=== PATIENT | female | born 1945 | race Caucasian/White ===

== ENCOUNTER → 2017-06-19 09:59 | Outpatient (CLI) | payer MEDICARE, SELFPAY ==
[2017-06-19 10:24] LABS: Alanine Aminotransferase 26 U/L (12-78); Albumin Level 3.8 gm/dL (3.4-5.0); Alkaline Phosphatase 59 U/L (46-116); Anion Gap 8.7 mEq/L (5-15); Aspartate Amino Transferase 16 U/L (15-37); Bilirubin,Total 0.6 mg/dL (0.2-1.0); Blood Urea Nitrogen 14 mg/dL (7-18); Calcium 9.2 mg/dL (8.5-10.1); Carbon Dioxide 32 mmol/L (21.0-32.0); Chloride 103 mmol/L (98-107); Chol/HDL Ratio 3.3 (1-3.5); Cholesterol 146 mg/dL (140-200); Creatinine,Serum 0.81 mg/dL (0.55-1.02); Estimated Glomerular Filt Rate 70 ml/min (>60); GFR (African American) 84 ML/MIN (>60); Globulin 3.8 gm/dl (1.3-3.2); Glucose 123 mg/dL (74-106); HDL Cholesterol 44 mg/dL (29-89); LDL Cholesterol 68 mg/dL (0-130); Potassium 4.7 mmoL/L (3.5-5.1); Sodium 139 mmol/L (136-145); Total Protein,Serum 7.6 gm/dL (6.4-8.2); Triglycerides 168 mg/dL (30-200); VLDL Cholesterol 34 mg/dL (0-40)
== END ==
PROVIDERS: Visit Provider Internal Medicine
DX: I10 Essential (primary) hypertension (principal); M15.0 Primary generalized (osteo)arthritis; E78.5 Hyperlipidemia, unspecified
CPT/HCPCS: 36415; 80053; 80061

== ENCOUNTER → 2017-12-22 09:27 | Outpatient (CLI) | payer MEDICARE, SELFPAY ==
[2017-12-22 10:21] LABS: Basophils # 0.1 K/mm3 (0-0.2); Eosinophils # 0.2 K/mm3 (0.0-0.4); Hematocrit 40.3 % (37.0-47.0); Lymphocytes # 1.9 K/mm3 (0.7-4.5); Mean Corpuscular HGB Conc 32.2 g/dL (31.8-35.4); Mean Corpuscular Hemoglobin 29.4 pg (27.0-31.2); Mean Corpuscular Volume 91.2 fl (81-99); Monocytes # 0.5 K/mm3 (0.1-1.0); Monocytes % 8.1 % (1.7-9.3); Neutrophils # 3.5 K/mm3 (1.8-7.8); Neutrophils % 56.9 % (37.0-80.0); Platelet Count 243 K/mm3 (142-424); Red Blood Count 4.42 M/mm3 (4.20-5.40); White Blood Count 6.2 K/mm3 (4.8-10.8)
[2017-12-22 10:41] LABS: Alanine Aminotransferase 23 U/L (12-78); Albumin Level 3.6 gm/dL (3.4-5.0); Albumin/Globulin Ratio 1.1 (1.1-1.8); Alkaline Phosphatase 62 U/L (46-116); Anion Gap 8.5 mEq/L (5-15); Aspartate Amino Transferase 13 U/L (15-37); Bilirubin,Total 0.6 mg/dL (0.2-1.0); Blood Urea Nitrogen 17 mg/dL (7-18); Calcium 9.1 mg/dL (8.5-10.1); Carbon Dioxide 32 mmol/L (21.0-32.0); Chloride 104 mmol/L (98-107); Chol/HDL Ratio 2.8 (1-3.5); Cholesterol 132 mg/dL (140-200); Creatinine,Serum 0.94 mg/dL (0.55-1.02); Estimated Glomerular Filt Rate 59 ml/min (>60); GFR (African American) 71 ML/MIN (>60); Globulin 3.3 gm/dl (1.3-3.2); Glucose 120 mg/dL (74-106); HDL Cholesterol 47 mg/dL (29-89); LDL Cholesterol 63 mg/dL (0-130); Potassium 4.5 mmoL/L (3.5-5.1); Sodium 140 mmol/L (136-145); Total Protein,Serum 6.9 gm/dL (6.4-8.2); Triglycerides 111 mg/dL (30-200); VLDL Cholesterol 22 mg/dL (0-40)
== END ==
PROVIDERS: PCP Internal Medicine; Visit Provider Internal Medicine
DX: E78.5 Hyperlipidemia, unspecified (principal); I10 Essential (primary) hypertension; I25.10 Atherosclerotic heart disease of native coronary artery without angina pectoris; K21.9 Gastro-esophageal reflux disease without esophagitis; M15.0 Primary generalized (osteo)arthritis
CPT/HCPCS: 36415; 80053; 80061; 85025

== ENCOUNTER → 2018-07-12 10:00 | Outpatient (CLI) | payer MEDICARE, SELFPAY ==
[2018-07-12 10:32] LABS: Basophils # 0.1 K/mm3 (0-0.2); Basophils % 0.7 % (0.1-2.0); Eosinophils # 0.2 K/mm3 (0.0-0.4); Eosinophils % 2.3 % (0.1-12.0); Hematocrit 43.2 % (37.0-47.0); Lymphocytes # 2.2 K/mm3 (0.7-4.5); Lymphocytes % 28.7 % (10-50); Mean Corpuscular HGB Conc 32.5 g/dL (31.8-35.4); Mean Corpuscular Hemoglobin 29.7 pg (27.0-31.2); Mean Corpuscular Volume 91.4 fl (81-99); Monocytes # 0.4 K/mm3 (0.1-1.0); Monocytes % 5.2 % (1.7-9.3); Neutrophils # 4.8 K/mm3 (1.8-7.8); Neutrophils % 63.1 % (37.0-80.0); Platelet Count 324 K/mm3 (142-424); Red Blood Count 4.72 M/mm3 (4.20-5.40); Red Cell Distribution Width 13.4 % (11.5-17.5); White Blood Count 7.6 K/mm3 (4.8-10.8)
[2018-07-12 11:30] LABS: Alanine Aminotransferase 24 U/L (12-78); Albumin Level 3.9 gm/dL (3.4-5.0); Albumin/Globulin Ratio 1.1 (1.1-1.8); Alkaline Phosphatase 61 U/L (46-116); Anion Gap 13.7 mEq/L (5-15); Aspartate Amino Transferase 17 U/L (15-37); Bilirubin,Total 0.8 mg/dL (0.2-1.0); Blood Urea Nitrogen 21 mg/dL (7-18); Calcium 9.8 mg/dL (8.5-10.1); Carbon Dioxide 30 mmol/L (21.0-32.0); Chloride 103 mmol/L (98-107); Cholesterol 145 mg/dL (140-200); Creatinine,Serum 0.89 mg/dL (0.55-1.02); Estimated Glomerular Filt Rate 62 ml/min (>60); GFR (African American) 75 ML/MIN (>60); Globulin 3.5 gm/dl (1.3-3.2); Glucose 118 mg/dL (74-106); HDL Cholesterol 48 mg/dL (29-89); LDL Cholesterol 71 mg/dL (0-130); Potassium 4.7 mmoL/L (3.5-5.1); Sodium 142 mmol/L (136-145); Total Protein,Serum 7.4 gm/dL (6.4-8.2); Triglycerides 132 mg/dL (30-200); VLDL Cholesterol 26 mg/dL (0-40)
== END ==
PROVIDERS: Visit Provider Internal Medicine
DX: I10 Essential (primary) hypertension (principal); I25.10 Atherosclerotic heart disease of native coronary artery without angina pectoris; E78.5 Hyperlipidemia, unspecified; K21.9 Gastro-esophageal reflux disease without esophagitis
CPT/HCPCS: 36415; 80053; 80061; 85025

== ENCOUNTER → 2019-01-25 11:19 | Outpatient (CLI) | payer MEDICARE, SELFPAY ==
[2019-01-25 11:51] LABS: Alanine Aminotransferase 18 U/L (12-78); Albumin Level 3.4 gm/dL (3.4-5.0); Albumin/Globulin Ratio 1.1 (1.1-1.8); Alkaline Phosphatase 51 U/L (46-116); Anion Gap 10.7 mEq/L (5-15); Aspartate Amino Transferase 11 U/L (15-37); Bilirubin,Total 0.7 mg/dL (0.2-1.0); Blood Urea Nitrogen 20 mg/dL (7-18); Calcium 8.8 mg/dL (8.5-10.1); Carbon Dioxide 31 mmol/L (21.0-32.0); Chloride 103 mmol/L (98-107); Chol/HDL Ratio 2.7 (1-3.5); Cholesterol 133 mg/dL (140-200); Creatinine,Serum 0.87 mg/dL (0.55-1.02); Estimated Glomerular Filt Rate 64 ml/min (>60); GFR (African American) 77 ML/MIN (>60); Globulin 3.1 gm/dl (1.3-3.2); Glucose 124 mg/dL (74-106); HDL Cholesterol 50 mg/dL (29-89); LDL Cholesterol 62 mg/dL (0-130); Potassium 4.7 mmoL/L (3.5-5.1); Sodium 140 mmol/L (136-145); Total Protein,Serum 6.5 gm/dL (6.4-8.2); Triglycerides 104 mg/dL (30-200); VLDL Cholesterol 21 mg/dL (0-40)
== END ==
PROVIDERS: Visit Provider Internal Medicine
DX: K21.9 Gastro-esophageal reflux disease without esophagitis (principal); I10 Essential (primary) hypertension; I25.10 Atherosclerotic heart disease of native coronary artery without angina pectoris; I25.2 Old myocardial infarction
CPT/HCPCS: 80053; 80061

== ENCOUNTER → 2019-08-30 11:01 | Outpatient (CLI) | payer MEDICAID, MEDICARE, SELFPAY ==
[2019-08-30 11:24] LABS: Basophils # 0.1 K/mm3 (0-0.2); Basophils % 0.6 % (0.1-2.0); Eosinophils # 0.2 K/mm3 (0.0-0.4); Eosinophils % 2.7 % (0.1-12.0); Hematocrit 41.3 % (37.0-47.0); Hemoglobin 13.3 g/dL (12.2-16.2); Lymphocytes # 2.2 K/mm3 (0.7-4.5); Mean Corpuscular HGB Conc 32.1 g/dL (31.8-35.4); Mean Corpuscular Volume 90.4 fl (81-99); Mean Platelet Volume 8.1 fl (7.4-10.4); Monocytes # 0.5 K/mm3 (0.1-1.0); Monocytes % 6.4 % (1.7-9.3); Neutrophils # 5.3 K/mm3 (1.8-7.8); Neutrophils % 64.2 % (37.0-80.0); Platelet Count 330 K/mm3 (142-424); Red Blood Count 4.57 M/mm3 (4.20-5.40); Red Cell Distribution Width 13.7 % (11.5-17.5); White Blood Count 8.2 K/mm3 (4.8-10.8)
[2019-08-30 12:12] LABS: Alanine Aminotransferase 17 U/L (12-78); Albumin Level 4.2 g/dl (3.5-5.0); Albumin/Globulin Ratio 1.5 (1.1-1.8); Alkaline Phosphatase 61 U/L (38-126); Anion Gap 6.7 mEq/L (5-15); Aspartate Amino Transferase 23 U/L (14-36); Bilirubin,Total 0.7 mg/dl (0.2-1.3); Blood Urea Nitrogen 22 mg/dl (7-17); Carbon Dioxide 32 mmol/L (22.0-30.0); Chloride 102 mmol/L (98-107); Chol/HDL Ratio 2.6 (1-3.5); Cholesterol 153 mg/dl (140-200); Estimated Glomerular Filt Rate 70 ml/min (>60); GFR (African American) 85 ML/MIN (>60); Globulin 2.8 g/dL (1.3-3.2); Glucose 125 mg/dl (74-100); HDL Cholesterol 58 mg/dl (40-60); Potassium 4.7 mmoL/L (3.5-5.1); Sodium 136 mmol/L (136-145); Triglycerides 146 mg/dl (30-150); VLDL Cholesterol 29 mg/dL (0-40)
[2019-08-30 12:23] LABS: Direct LDL Cholesterol 83.36 mg/dL (100-129)
[2019-08-31 11:05] LABS: Hemoglobin A1C 6.3 % (4.0-6.0)
== END ==
PROVIDERS: Visit Provider Internal Medicine
DX: I25.10 Atherosclerotic heart disease of native coronary artery without angina pectoris (principal); I10 Essential (primary) hypertension; I25.2 Old myocardial infarction; E78.5 Hyperlipidemia, unspecified; K21.9 Gastro-esophageal reflux disease without esophagitis; R73.9 Hyperglycemia, unspecified
CPT/HCPCS: 36415; 80053; 80061; 83036; 85025

== ENCOUNTER → 2020-05-08 09:36 | Outpatient (CLI) | payer MEDICAID, SELFPAY ==
[2020-05-08 11:06] LABS: Chloride 101 mmol/L (98-107); Potassium 4.6 mmoL/L (3.5-5.1); Sodium 138 mmol/L (136-145)
[2020-05-08 11:09] LABS: Alanine Aminotransferase 17 U/L (12-78); Albumin Level 4.3 g/dl (3.5-5.0); Albumin/Globulin Ratio 1.4 (1.1-1.8); Alkaline Phosphatase 63 U/L (38-126); Anion Gap 11.6 mEq/L (5-15); Aspartate Amino Transferase 23 U/L (14-36); Bilirubin,Total 0.8 mg/dl (0.2-1.3); Blood Urea Nitrogen 21 mg/dl (7-17); Carbon Dioxide 30 mmol/L (22.0-30.0); Cholesterol 160 mg/dl (140-200); Estimated Glomerular Filt Rate 61 ml/min (>60); GFR (African American) 74 ML/MIN (>60); Glucose 125 mg/dl (74-100); Total Protein,Serum 7.3 g/dl (6.3-8.2); Triglycerides 132 mg/dl (30-150); VLDL Cholesterol 26 mg/dL (0-40)
[2020-05-08 11:10] LABS: HDL Cholesterol 53 mg/dl (40-60)
[2020-05-08 11:20] LABS: Direct LDL Cholesterol 73.63 mg/dL (100-129)
[2020-05-09 21:25] LABS: Hemoglobin A1C 6.2 % (4.0-6.0)
== END ==
PROVIDERS: Visit Provider Internal Medicine
DX: I25.10 Atherosclerotic heart disease of native coronary artery without angina pectoris (principal); I10 Essential (primary) hypertension; E78.5 Hyperlipidemia, unspecified; M15.0 Primary generalized (osteo)arthritis; K21.9 Gastro-esophageal reflux disease without esophagitis; R73.09 Other abnormal glucose
CPT/HCPCS: 36415; 80053; 80061; 83036

== ENCOUNTER 2020-11-12 14:53 | Emergency (ER) | payer SELFPAY ==
[2020-11-12] VITALS (10 sets, daily range): BP systolic 101–121; BP diastolic 59–81; PULSE 75–85; RESP 16–36; TEMP 37; O2SAT 90–96; BMI 31.2
--- NOTE | 2020-11-12 15:07 | XR_ITS ---
PROCEDURE: XR CHEST PORTABLE CLINICAL HISTORY: sob Shortness of air, cough COMPARISON: CR XR CHEST 2V from 04/06/2019 FINDINGS: Prior CABG. There are low lung volumes with mild prominence of the cardiac silhouette. No evidence of CHF. The lungs are clear without infiltrates, suspicious nodules, or pleural effusions. No acute bony abnormalities. IMPRESSION: No acute findings. Dictated by: Ronak Burns MD 11/12/2020 16:46 Ronak Burns MD in [facility] 11/12/2020 16:46
--- NOTE | 2020-11-12 15:17 | ECG_ITS ---
APPROVED REPORT Exam: Resting ECG HR:78 bpm ECG Measurements Heart Rate 78 AXES AL 164 P 45 QRSd 88 QRS -16 QT 372 T 183 QTc 424 Conclusion Sinus rhythm with premature atrial complexes Minimal voltage criteria for LVH, may be normal variant ST & T wave abnormality,unchanged from prior Abnormal ECG Electronically signed by : Jamil Hill, 11/13/2020 17:01:51
[2020-11-12 15:32] LABS: Basophils % 0.8 % (0.1-2.0); Eosinophils % 0.5 % (0.1-12.0); Hematocrit 37.6 % (37.0-47.0); Hemoglobin 12.4 g/dL (12.2-16.2); Lymphocytes # 1.1 K/mm3 (0.7-4.5); Lymphocytes % 21.4 % (10-50); Mean Corpuscular Hemoglobin 29.2 pg (27.0-31.2); Mean Corpuscular Volume 88.5 fl (81-99); Mean Platelet Volume 7.2 fl (7.4-10.4); Monocytes # 0.6 K/mm3 (0.1-1.0); Monocytes % 10.7 % (1.7-9.3); Neutrophils # 3.4 K/mm3 (1.8-7.8); Neutrophils % 66.7 % (37.0-80.0); Platelet Count 219 K/mm3 (142-424); Red Blood Count 4.25 M/mm3 (4.20-5.40); Red Cell Distribution Width 13.1 % (11.5-17.5); White Blood Count 5.2 K/mm3 (4.8-10.8)
[2020-11-12 15:35] LABS: Coronavirus 19, PCR Not Detected (NotDetected); Influenza A, PCR Not Detected (NotDetected); Influenza B, PCR Not Detected (NotDetected)
[2020-11-12 15:48] LABS: ABG Base Excess 0.8 mmol/L (-2.4-2.3); ABG HCO3 24.6 mmhg (22.0-26.0); ABG Oxygen Saturation 94 % (90-100); ABG PCO2 35.6 mmhg (35.0-45.0); ABG PH 7.46 mmol/L (7.35-7.45); ABG PO2 66.9 mmhg (80-100); ABG TCO2 25.7 mmhg (23-27); Allen's Test Acceptable; Oxygen 2L NC %; Source Right Radial
[2020-11-12 15:51] LABS: Activated Partial Thrombo Time 26.4 seconds (22.8-30.6); Lactic Acid 1.1 mmol/L (0.7-2.1); Prothrombin Time 11.2 seconds (10.1-12.5)
[2020-11-12 15:53] LABS: INR 0.95 (0.9-1.1)
--- NOTE | 2020-11-12 15:58 | HMH.EDGENADL ---
ED Disposition Clinical Impression: Atypical pneumonia Disposition: Home, Self-Care Condition on Discharge: Good Instructions: DI for Atypical Pneumonia Prescriptions: Acetaminophen with Codeine [Acetaminophen w/Codeine #3 Tablet] 1 tab PO TID PRN #12 tab PRN Reason: Moderate To Severe Pain Transmission Status: Sent to [facility] #[id number] Doxycycline Hyclate [Doxycycline 100mg Capsule] 100 mg PO Q12 #20 cap Transmission Status: Pending to [facility] #[id number] Referrals: Juan Mccollum [Primary Care Provider] - - Critical Care Critical Care Time: No Attestation: On 11/12/20, the high probability of a clinically significant, sudden or life threatening deterioration of the following system(s) required my full and direct attention, intervention and personal management. The time I documented below is in addition to time spent performing reported procedures but includes the following listed in this critical care notation. Medical Decision Making - Medical Records Medical records reviewed: Yes: I reviewed the patient's medical records. - Heraclio Inquiry Pt receiving controlled substance: No Heraclio was queried for this patient: No Vital Signs: 11/12/20 14:53 11/12/20 15:31 11/12/20 16:00 Temperature 98.6 F Temperature Source Oral Pulse Rate 84 85 Pulse Rate [Radial] 80 Respiratory Rate 36 H 21 Blood Pressure 101/59 L 112/64 Blood Pressure [Right Arm] 120/67 Blood Pressure Mean 74 74 Blood Pressure Mean [Right Arm] 84 Blood Pressure Position [Right Arm] Sitting 02 Sat by Pulse Oximetry 90 L 95 93 L Oxygen Delivery Method Room Air 11/12/20 16:30 11/12/20 17:00 11/12/20 17:30 Temperature Temperature Source Pulse Rate 84 75 77 Pulse Rate [Radial] Respiratory Rate 16 22 21 Blood Pressure 107/64 L 106/65 L 117/69 Blood Pressure [Right Arm] Blood Pressure Mean 77 79 82 Blood Pressure Mean [Right Arm] Blood Pressure Position [Right Arm] 02 Sat by Pulse Oximetry 93 L 93 L 92 L Oxygen Delivery Method 11/12/20 18:00 11/12/20 19:00 Temperature Temperature Source Pulse Rate 75 79 Pulse Rate [Radial] Respiratory Rate 25 H 20 Blood Pressure 104/68 L 120/81 Blood Pressure [Right Arm] Blood Pressure Mean 75 90 Blood Pressure Mean [Right Arm] Blood Pressure Position [Right Arm] 02 Sat by Pulse Oximetry 94 L 96 Oxygen Delivery Method - Lab Data Lab Results 11/12/20 15:11: Specimen Source Right radial, O2 % 2l nc, ABG pH 7.46 H, ABG pCO2 35.6, ABG pO2 66.9 L, ABG HCO3 24.6, ABG Total CO2 25.7, ABG O2 Saturation 94, ABG Base Excess 0.8, Ronak Test Acceptable 11/12/20 15:15: WBC 5.2, RBC 4.25, Hgb 12.4, Hct 37.6, MCV 88.5, MCH 29.2, MCHC 33.0, RDW 13.1, Plt Count 219, MPV 7.2 L, Neut % (Auto) 66.7, Lymph % (Auto) 21.4, Bartholomew % (Auto) 10.7 H, Eos % (Auto) 0.5, Baso % (Auto) 0.8, Neut # (Auto) 3.4, Lymph # (Auto) 1.1, Bartholomew # (Auto) 0.6, Eos # (Auto) 0.0, Baso # (Auto) 0.0 11/12/20 15:15: Sodium 132 L, Potassium 3.8, Chloride 97 L, Carbon Dioxide 27, Anion Gap 11.8, BUN 16, Creatinine 0.70, Estimated Creat Clear 57, Estimated GFR 82, Est GFR ( Amer) 99, Glucose 131 H, Calcium 8.9, Total Bilirubin 0.9, AST 44 H, ALT 22, Alkaline Phosphatase 67, Troponin I < 0.01, Total Protein 7.2, Albumin 4.2, Globulin 3.0, Albumin/Globulin Ratio 1.4, TSH 0.64 11/12/20 15:15: Lactate 1.1 11/12/20 15:15: PT 11.2, INR 0.95, APTT 26.4 11/12/20 15:15: NT-Pro-B Natriuret Pep 149 H 11/12/20 15:15: SARS-CoV-2 (PCR) Not detected, Influenza A Untype (PCR) Not detected, Influenza Type B (PCR) Not detected Result diagrams: 11/12/20 15:15 11/12/20 15:15 Orders (Tests/Meds): ED MEDICATIONS Discontinued Medications Generic Name Dose Route Start Last Admin Trade Name Freq PRN Reason Stop Dose Admin Albuterol/Ipratropium 3 ml 11/12/20 15:07 11/12/20 15:11 Ipratropium/Albuterol 3 Ml Neb IH 11/12/20 15:08 3 ml ONCE ONE Administration Aspirin 3
[2020-11-12 16:35] LABS: Chloride 97 mmol/L (98-107); Sodium 132 mmol/L (136-145)
[2020-11-12 16:36] LABS: Potassium 3.8 mmoL/L (3.5-5.1)
[2020-11-12 16:38] LABS: Alanine Aminotransferase 22 U/L (12-78); Albumin Level 4.2 g/dl (3.5-5.0); Albumin/Globulin Ratio 1.4 (1.1-1.8); Alkaline Phosphatase 67 U/L (38-126); Anion Gap 11.8 mEq/L (5-15); Aspartate Amino Transferase 44 U/L (14-36); Bilirubin,Total 0.9 mg/dl (0.2-1.3); Blood Urea Nitrogen 16 mg/dl (7-17); Calcium 8.9 mg/dl (8.4-10.2); Carbon Dioxide 27 mmol/L (22.0-30.0); Creatinine Clearance Estimated 57 mL/min (50-200); Estimated Glomerular Filt Rate 82 ml/min (>60); GFR (African American) 99 ML/MIN (>60); Glucose 131 mg/dl (74-100); Total Protein,Serum 7.2 g/dl (6.3-8.2)
[2020-11-12 16:48] LABS: NT Pro Brain Natriuretic Pep. 149 pg/mL (0-125)
[2020-11-12 16:55] LABS: Troponin I < 0.01 ng/ml (0.00-0.034)
[2020-11-12 17:11] LABS: Thyroid Stimulating Hormone 0.64 uIU/mL (0.465-4.68)
--- NOTE | 2020-11-12 17:57 | CT_ITS ---
PROCEDURE INFORMATION: Exam: CTA Chest With Contrast Exam date and time: 11/12/2020 5:57 PM Age: 74 years old Clinical indication: Cough and shortness of breath; Prior surgery; Surgery date: 6+ months; Surgery type: Open heart; Patient HX: SOA and cough x 4 days; Additional info: Hypoxia TECHNIQUE: Imaging protocol: Computed tomographic angiography of the chest with contrast. 3D rendering (Not supervised by radiologist): MIP and/or 3D reconstructed images were created by the technologist. Radiation optimization: All CT scans at this facility use at least one of these dose optimization techniques: automated exposure control; mA and/or kV adjustment per patient size (includes targeted exams where dose is matched to clinical indication); or iterative reconstruction. Contrast material: ISOVUE; Contrast volume: 70 ml; Contrast route: INTRAVENOUS (IV); COMPARISON: CR XR CHEST PORTABLE 11/12/2020 3:32 PM FINDINGS: Pulmonary arteries: Small amount of air in the main pulmonary artery probably due to IV access. No evidence of pulmonary embolus to the segmental level and most cases subsegmental level. Aorta: Mild enlargement of the ascending thoracic aorta. Lungs: Mild diffuse bronchial wall thickening noted compatible with bronchitis. Some focal nodular opacities in the right upper lobe have a tree-in-bud type appearance and likely represent infection. Similar findings seen in the left lower lobe medially. Mild bilateral cylindrical bronchiectasis in the lower lobes. Some tree-in-bud opacities are also seen in the left lower lobe. Pleural spaces: Unremarkable. No pneumothorax. No pleural effusion. Heart: Coronary artery calcifications are seen. Lymph nodes: Calcified mediastinal lymph nodes are seen. Largest is in the right hilum. A few other mildly prominent noncalcified mediastinal lymph nodes are seen. Liver: Calcified granulomata seen in the spleen and liver. Bones/joints: Unremarkable. No acute fracture. Soft tissues: Unremarkable. IMPRESSION: 1. No evidence of pulmonary embolus. 2. Scattered bilateral tree-in-bud type opacities most suspicious for infection. Clinical correlation recommended as this could be an atypical presentation of malignancy. Consider follow-up once the patient's symptoms resolve to ensure resolution. 3. Mild bronchitis and lower lobe bronchiectasis.
--- NOTE | 2020-11-12 18:27 | PC.NURSE ---
pt going to rad.
[2020-11-12 19:49] LABS: Troponin I < 0.01 ng/ml (0.00-0.034)
== END 2020-11-12 19:43 | disposition home or self-care (01) ==
PROVIDERS: Emergency Provider Emergency Medicine; PCP Internal Medicine
DX: J18.9 Pneumonia, unspecified organism (principal); J45.909 Unspecified asthma, uncomplicated; I10 Essential (primary) hypertension; I25.10 Atherosclerotic heart disease of native coronary artery without angina pectoris; E78.5 Hyperlipidemia, unspecified; Z79.899 Other long term (current) drug therapy
CPT/HCPCS: 71045; 71275; 80053; 82803; 83605; 83880; 84443; 84484; 85025; 85610; 85730; 87040; 93005; 99284; Q9967; U0003

== ENCOUNTER 2020-11-12 21:43 | Emergency (ER) | payer SELFPAY ==
[2020-11-12 21:45] VITALS: BP 126/74; PULSE 78; RESP 18; TEMP 36.6; O2SAT 92
--- NOTE | 2020-11-12 22:38 | HMH.EDSOB ---
ED Disposition Clinical Impression: Reactive airway disease Qualifiers: Asthma severity: moderate Asthma complication type: uncomplicated Disposition: Home, Self-Care Condition on Discharge: Good Instructions: DI for Shortness of Breath Additional Instructions: use meds and call pcp for follow up Prescriptions: predniSONE [Prednisone 20mg Tab] 20 mg PO BID #10 tab Transmission Status: Pending to [facility] # Benzonatate [Tessalon Perle 100mg Cap] 100 mg PO TID #30 cap Transmission Status: Pending to [facility] # Referrals: Juan Mccollum [Primary Care Provider] - - Critical Care Critical Care Time: No Attestation: On 11/12/20, the high probability of a clinically significant, sudden or life threatening deterioration of the following system(s) required my full and direct attention, intervention and personal management. The time I documented below is in addition to time spent performing reported procedures but includes the following listed in this critical care notation. Medical Decision Making - Medical Records Medical records reviewed: Yes: I reviewed the patient's medical records. - Heraclio Inquiry Pt receiving controlled substance: No Vital Signs: 11/12/20 21:45 Temperature 97.9 F Temperature Source Oral Pulse Rate [Right] 78 Respiratory Rate 18 Blood Pressure [Right Arm] 126/74 Blood Pressure Mean [Right Arm] 91 02 Sat by Pulse Oximetry 92 L Oxygen Delivery Method Room Air - Lab Data Lab results reviewed: Yes: I reviewed the patient's lab results. Orders (Tests/Meds): ED MEDICATIONS Generic Name Dose Route Start Last Admin Trade Name Freq PRN Reason Stop Dose Admin Albuterol Sulfate 2 puffs 11/12/20 22:28 Albuterol-Hfa 90mcg/Puff Inhaler 8gm 12/12/20 22:27 Q4HP PRN Shortness Of Breath Benzonatate 100 mg 11/12/20 22:30 11/12/20 22:30 Benzonatate 100mg Capsule PO 12/12/20 22:29 100 mg ONCE MATEO Administration Discontinued Medications Generic Name Dose Route Start Last Admin Trade Name Freq PRN Reason Stop Dose Admin Albuterol/Ipratropium 3 ml 11/12/20 22:28 Ipratropium/Albuterol 3 Ml Neb 11/12/20 22:29 ONCE ONE Miscellaneous 1 unit 11/12/20 22:28 Aerochamber/Optihaler 11/12/20 22:29 ONCE ONE Prednisone 60 mg 11/12/20 22:28 11/12/20 22:30 Prednisone 20mg Tab PO 11/12/20 22:29 60 mg ONCE ONE Administration Medical Decision Narrative: will add steroids and proventil mdi at this time after reviewing earlier eval Resp/SOB HPI - General Chief Complaint: Shortness of Breath/Dyspnea Stated Complaint: Breathing problems Time Seen by Provider: 11/12/20 22:00 Mode of Arrival: Family Vehicle Source of Information: Patient, Medical Record Limitations: No Limitations Description of Symptoms (Recalled from ER Triage Doc. by RN): Pt reports she thought her breathing was worsening so she came back to the hospital. Pt left ~1999 from this ER after being dx with Pneumonia. She reports she is coughing frequently and it makes her more SOB. - History of Present Illness pt with recent ed visit with prob bronchitis and has ongoing sx - pt had cxr/ct chest MD Complaint: shortness of breath, cough Onset (ago): hour(s) Consistency/Duration: intermittent Known history of: other (bronchitis) Associated symptoms: cough - Related Data Home oxygen amount: none Home Medications Medication Instructions Recorded Confirmed Aspirin [Aspirin 81mg chewable 81 mg PO DAILY 11/12/20 11/12/20 tab] Doxycycline Hyclate [Doxycycline 100 mg PO Q12 11/12/20 11/12/20 100mg Capsule] Esomeprazole Magnesium [Nexium] 40 mg PO DAILY 11/12/20 11/12/20 Isosorbide Mononitrate [Imdur 30mg 30 mg PO DAILY 11/12/20 11/12/20 ER tablet] Metoprolol Tartrate 50 mg PO BID 11/12/20 11/12/20 Rosuvastatin Calcium [Crestor 40mg 40 mg PO DAILY 11/12/20 11/12/20 Tablets] lisinopriL [Lisinopri
[2020-11-12 22:42] VITALS: PULSE 81; PULSE 89
[2020-11-12 23:13] VITALS: BP 120/79; PULSE 72; RESP 21; TEMP 36.8; O2SAT 93
[2020-11-12 23:17] VITALS: BP 134/76; PULSE 94; RESP 18; TEMP 36.6; O2SAT 95
== END 2020-11-12 23:20 | disposition home or self-care (01) ==
PROVIDERS: Emergency Provider Emergency Medicine; PCP Internal Medicine
DX: J45.909 Unspecified asthma, uncomplicated (principal); J18.9 Pneumonia, unspecified organism; I25.10 Atherosclerotic heart disease of native coronary artery without angina pectoris; I10 Essential (primary) hypertension; E78.5 Hyperlipidemia, unspecified; Z79.899 Other long term (current) drug therapy
CPT/HCPCS: 99281

== ENCOUNTER → 2020-12-04 09:48 | Outpatient (CLI) | payer SELFPAY ==
[2020-12-04 10:28] LABS: Basophils # 0.1 K/mm3 (0-0.2); Basophils % 0.9 % (0.1-2.0); Eosinophils # 0.3 K/mm3 (0.0-0.4); Eosinophils % 3.7 % (0.1-12.0); Hematocrit 44.2 % (37.0-47.0); Hemoglobin 14.1 g/dL (12.2-16.2); Lymphocytes # 2.1 K/mm3 (0.7-4.5); Lymphocytes % 27.1 % (10-50); Mean Corpuscular Hemoglobin 29.2 pg (27.0-31.2); Mean Corpuscular Volume 91.2 fl (81-99); Mean Platelet Volume 7.4 fl (7.4-10.4); Monocytes # 0.5 K/mm3 (0.1-1.0); Monocytes % 6.7 % (1.7-9.3); Neutrophils # 4.8 K/mm3 (1.8-7.8); Neutrophils % 61.8 % (37.0-80.0); Platelet Count 343 K/mm3 (142-424); Red Blood Count 4.85 M/mm3 (4.20-5.40); Red Cell Distribution Width 13.9 % (11.5-17.5); White Blood Count 7.8 K/mm3 (4.8-10.8)
[2020-12-04 10:45] LABS: Chloride 103 mmol/L (98-107); Potassium 4.8 mmoL/L (3.5-5.1); Sodium 140 mmol/L (136-145)
[2020-12-04 10:47] LABS: Alanine Aminotransferase 22 U/L (12-78); Aspartate Amino Transferase 22 U/L (14-36); Blood Urea Nitrogen 17 mg/dl (7-17); Estimated Glomerular Filt Rate 70 ml/min (>60); GFR (African American) 85 ML/MIN (>60)
[2020-12-04 10:48] LABS: Albumin/Globulin Ratio 1.4 (1.1-1.8); Alkaline Phosphatase 70 U/L (38-126); Anion Gap 11.8 mEq/L (5-15); Bilirubin,Total 0.8 mg/dl (0.2-1.3); Calcium 9.5 mg/dl (8.4-10.2); Carbon Dioxide 30 mmol/L (22.0-30.0); Chol/HDL Ratio 3.2 (1-3.5); Cholesterol 165 mg/dl (140-200); Globulin 2.8 g/dL (1.3-3.2); Glucose 129 mg/dl (74-100); HDL Cholesterol 52 mg/dl (40-60); Total Protein,Serum 6.8 g/dl (6.3-8.2); Triglycerides 151 mg/dl (30-150); VLDL Cholesterol 30 mg/dL (0-40)
[2020-12-04 10:59] LABS: Direct LDL Cholesterol 74.73 mg/dL (100-129)
[2020-12-04 16:46] LABS: Hemoglobin A1C 6.3 % (4.0-6.0)
== END ==
PROVIDERS: Visit Provider Internal Medicine
DX: J18.9 Pneumonia, unspecified organism (principal); I25.10 Atherosclerotic heart disease of native coronary artery without angina pectoris; E78.5 Hyperlipidemia, unspecified; R73.09 Other abnormal glucose
CPT/HCPCS: 36415; 80053; 80061; 83036; 85025

== ENCOUNTER → 2021-07-03 10:14 | Outpatient (CLI) | payer MEDICARE, MEDICAID, SELFPAY ==
[2021-07-03 11:39] LABS: Alanine Aminotransferase 19 U/L (12-78); Albumin Level 3.9 g/dl (3.5-5.0); Albumin/Globulin Ratio 1.6 (1.1-1.8); Alkaline Phosphatase 58 U/L (38-126); Anion Gap 10.4 mEq/L (5-15); Aspartate Amino Transferase 22 U/L (14-36); Bilirubin,Total 0.9 mg/dl (0.2-1.3); Blood Urea Nitrogen 21 mg/dl (7-17); Calcium 9.2 mg/dl (8.4-10.2); Carbon Dioxide 29 mmol/L (22.0-30.0); Chloride 104 mmol/L (98-107); Chol/HDL Ratio 2.9 (1-3.5); Cholesterol 145 mg/dl (140-200); Estimated Glomerular Filt Rate 82 ml/min (>60); GFR (African American) 99 ML/MIN (>60); Globulin 2.4 g/dL (1.3-3.2); Glucose 123 mg/dl (74-100); HDL Cholesterol 50 mg/dl (40-60); Potassium 4.4 mmoL/L (3.5-5.1); Sodium 139 mmol/L (136-145); Total Protein,Serum 6.3 g/dl (6.3-8.2); Triglycerides 141 mg/dl (30-150); VLDL Cholesterol 28 mg/dL (0-40)
[2021-07-03 11:50] LABS: Direct LDL Cholesterol 65.66 mg/dL (100-129)
== END ==
PROVIDERS: Visit Provider Internal Medicine
DX: I25.10 Atherosclerotic heart disease of native coronary artery without angina pectoris (principal); I10 Essential (primary) hypertension; E78.5 Hyperlipidemia, unspecified
CPT/HCPCS: 36415; 80053; 80061

== ENCOUNTER → 2022-01-21 10:10 | Outpatient (CLI) | payer MEDICARE, MEDICAID, SELFPAY ==
[2022-01-21 10:42] LABS: Basophils # 0.1 K/mm3 (0-0.2); Eosinophils # 0.2 K/mm3 (0.0-0.4); Eosinophils % 2.8 % (0.1-12.0); Hemoglobin 13.9 g/dL (12.2-16.2); Lymphocytes # 2.1 K/mm3 (0.7-4.5); Lymphocytes % 26.1 % (10-50); Mean Corpuscular HGB Conc 31.7 g/dL (31.8-35.4); Mean Corpuscular Hemoglobin 30.1 pg (27.0-31.2); Mean Corpuscular Volume 95.1 fl (81-99); Mean Platelet Volume 8.2 fl (7.4-10.4); Monocytes # 0.6 K/mm3 (0.1-1.0); Monocytes % 7.4 % (1.7-9.3); Neutrophils % 62.7 % (37.0-80.0); Platelet Count 312 K/mm3 (142-424); Red Blood Count 4.62 M/mm3 (4.20-5.40); Red Cell Distribution Width 13.9 % (11.5-17.5)
[2022-01-21 12:52] LABS: Chloride 98 mmol/L (98-107)
[2022-01-21 12:53] LABS: Potassium 4.8 mmoL/L (3.5-5.1); Sodium 138 mmol/L (136-145)
[2022-01-21 12:55] LABS: Alanine Aminotransferase 21 U/L (12-78); Alkaline Phosphatase 65 U/L (38-126); Anion Gap 12.8 mEq/L (5-15); Aspartate Amino Transferase 26 U/L (14-36); Blood Urea Nitrogen 18 mg/dl (7-17); Carbon Dioxide 32 mmol/L (22.0-30.0); Cholesterol 157 mg/dl (140-200); Estimated Glomerular Filt Rate 70 ml/min (>60); GFR (African American) 84 ML/MIN (>60); Triglycerides 172 mg/dl (30-150); VLDL Cholesterol 34 mg/dL (0-40)
[2022-01-21 12:56] LABS: Albumin Level 3.9 g/dl (3.5-5.0); Albumin/Globulin Ratio 1.4 (1.1-1.8); Calcium 9.1 mg/dl (8.4-10.2); Chol/HDL Ratio 3.3 (1-3.5); Globulin 2.7 g/dL (1.3-3.2); Glucose 127 mg/dl (74-100); HDL Cholesterol 47 mg/dl (40-60); Total Protein,Serum 6.6 g/dl (6.3-8.2)
[2022-01-21 13:00] LABS: Hemoglobin A1C 6.7 % (4.0-6.0)
[2022-01-21 13:07] LABS: Direct LDL Cholesterol 65.84 mg/dL (100-129)
== END ==
PROVIDERS: PCP Internal Medicine; Visit Provider Internal Medicine
DX: I10 Essential (primary) hypertension (principal); R73.01 Impaired fasting glucose
CPT/HCPCS: 36415; 80053; 80061; 83036; 85025

== ENCOUNTER → 2022-08-19 10:31 | Outpatient (CLI) | payer MEDICARE, MEDICAID, SELFPAY ==
[2022-08-19 11:42] LABS: Chloride 96 mmol/L (98-107); Potassium 4.7 mmoL/L (3.5-5.1); Sodium 137 mmol/L (136-145)
[2022-08-19 11:44] LABS: Alanine Aminotransferase 23 U/L (12-78); Albumin Level 4.1 g/dl (3.5-5.0); Albumin/Globulin Ratio 1.5 (1.1-1.8); Alkaline Phosphatase 60 U/L (38-126); Anion Gap 14.7 mEq/L (5-15); Aspartate Amino Transferase 28 U/L (14-36); Bilirubin,Total 0.8 mg/dl (0.2-1.3); Blood Urea Nitrogen 23 mg/dl (7-17); Carbon Dioxide 31 mmol/L (22.0-30.0); Estimated Glomerular Filt Rate 70 ml/min (>60); GFR (African American) 84 ML/MIN (>60); Globulin 2.7 g/dL (1.3-3.2); Total Protein,Serum 6.8 g/dl (6.3-8.2)
[2022-08-19 11:45] LABS: Calcium 9.6 mg/dl (8.4-10.2); Chol/HDL Ratio 3.1 (1-3.5); Cholesterol 148 mg/dl (140-200); Glucose 145 mg/dl (74-100); HDL Cholesterol 48 mg/dl (40-60); Triglycerides 201 mg/dl (30-150); VLDL Cholesterol 40 mg/dL (0-40)
[2022-08-19 11:57] LABS: Direct LDL Cholesterol 76.08 mg/dL (100-129)
[2022-08-19 17:45] LABS: Hemoglobin A1C 6.9 % (4.0-6.0)
== END ==
PROVIDERS: PCP Internal Medicine; Visit Provider Internal Medicine
DX: I25.10 Atherosclerotic heart disease of native coronary artery without angina pectoris (principal); I10 Essential (primary) hypertension; E78.5 Hyperlipidemia, unspecified; R73.9 Hyperglycemia, unspecified
CPT/HCPCS: 36415; 80053; 80061; 83036

== ENCOUNTER → 2022-08-21 08:43 | Outpatient (CLI) | payer MEDICARE, MEDICAID, SELFPAY ==
[2022-08-21 10:27] LABS: Hemoglobin A1C 6.7 % (4.0-6.0)
== END ==
PROVIDERS: PCP Internal Medicine; Visit Provider Internal Medicine
DX: R73.09 Other abnormal glucose (principal)
CPT/HCPCS: 36415; 83036

== ENCOUNTER → 2023-02-23 09:38 | Outpatient (CLI) | payer MEDICARE, MEDICAID, SELFPAY ==
[2023-02-23 10:23] LABS: Basophils % 0.6 % (0.1-2.0); Eosinophils # 0.2 K/mm3 (0.0-0.4); Eosinophils % 3.2 % (0.1-12.0); Hemoglobin 14.5 g/dL (12.2-16.2); Lymphocytes # 2.1 K/mm3 (0.7-4.5); Lymphocytes % 34.8 % (10-50); Mean Corpuscular HGB Conc 33.8 g/dL (31.8-35.4); Mean Corpuscular Volume 91.8 fl (81-99); Monocytes # 0.3 K/mm3 (0.1-1.0); Monocytes % 5.4 % (1.7-9.3); Neutrophils # 3.4 K/mm3 (1.8-7.8); Neutrophils % 55.9 % (37.0-80.0); Platelet Count 223 K/mm3 (142-424); Red Blood Count 4.69 M/mm3 (4.20-5.40); Red Cell Distribution Width 13.8 % (11.5-17.5)
[2023-02-23 10:37] LABS: Alanine Aminotransferase 30 U/L (12-78); Albumin Level 4.4 g/dl (3.5-5.0); Albumin/Globulin Ratio 1.4 (1.1-1.8); Alkaline Phosphatase 61 U/L (38-126); Aspartate Amino Transferase 35 U/L (14-36); Bilirubin,Total 0.9 mg/dl (0.2-1.3); Blood Urea Nitrogen 18 mg/dl (7-17); Calcium 9.8 mg/dl (8.4-10.2); Carbon Dioxide 30 mmol/L (22.0-30.0); Chloride 100 mmol/L (98-107); Chol/HDL Ratio 3.6 (1-3.5); Cholesterol 150 mg/dl (140-200); Estimated Glomerular Filt Rate 70 ml/min (>60); GFR (African American) 84 ML/MIN (>60); Globulin 3.1 g/dL (1.3-3.2); Glucose 139 mg/dl (74-100); HDL Cholesterol 42 mg/dl (40-60); Sodium 139 mmol/L (136-145); Total Protein,Serum 7.5 g/dl (6.3-8.2); Triglycerides 178 mg/dl (30-150); VLDL Cholesterol 36 mg/dL (0-40)
[2023-02-23 10:49] LABS: Direct LDL Cholesterol 76.62 mg/dL (100-129)
[2023-02-23 12:28] LABS: Hemoglobin A1C 6.9 % (4.0-6.0)
[2023-02-23 14:00] LABS: Microalbumin/Creatinine Ratio 7.8
[2023-02-23 14:20] LABS: Creatinine,Urine Random 187 mg/dL (Not Estab.)
== END ==
PROVIDERS: PCP Internal Medicine; Visit Provider Internal Medicine
DX: E11.59 Type 2 diabetes mellitus with other circulatory complications (principal); E78.5 Hyperlipidemia, unspecified; I10 Essential (primary) hypertension; M15.0 Primary generalized (osteo)arthritis
CPT/HCPCS: 36415; 80053; 80061; 82043; 82570; 83036; 85025

== ENCOUNTER 2023-08-24 12:16 | Outpatient (CLI) | payer MEDICARE, MEDICAID, SELFPAY ==
[2023-08-24 13:50] LABS: Hemoglobin A1C 6.6 % (4.0-6.0)
[2023-08-24 14:22] LABS: Chloride 103 mmol/L (98-107); Potassium 4.7 mmoL/L (3.5-5.1); Sodium 138 mmol/L (136-145)
[2023-08-24 14:24] LABS: Blood Urea Nitrogen 26 mg/dl (7-17)
[2023-08-24 14:25] LABS: Alanine Aminotransferase 21 U/L (12-78); Albumin/Globulin Ratio 1.5 (1.1-1.8); Alkaline Phosphatase 57 U/L (38-126); Anion Gap 9.7 mEq/L (5-15); Aspartate Amino Transferase 29 U/L (14-36); Carbon Dioxide 30 mmol/L (22.0-30.0); Chol/HDL Ratio 3.1 (1-3.5); Cholesterol 144 mg/dl (140-200); Estimated Glomerular Filt Rate 70 ml/min (>60); GFR (African American) 84 ML/MIN (>60); Globulin 2.6 g/dL (1.3-3.2); Glucose 114 mg/dl (74-100); HDL Cholesterol 47 mg/dl (40-60); Total Protein,Serum 6.6 g/dl (6.3-8.2); Triglycerides 144 mg/dl (30-150); VLDL Cholesterol 29 mg/dL (0-40)
== END 2023-08-24 23:59 | disposition home or self-care (01) ==
LOC: LAB.DROPOF 12:18
PROVIDERS: PCP Internal Medicine; Visit Provider Internal Medicine
DX: E11.59 Type 2 diabetes mellitus with other circulatory complications (principal); I25.10 Atherosclerotic heart disease of native coronary artery without angina pectoris; I10 Essential (primary) hypertension; I25.2 Old myocardial infarction; E78.5 Hyperlipidemia, unspecified; M17.0 Bilateral primary osteoarthritis of knee
CPT/HCPCS: 80053; 80061; 83036

== ENCOUNTER 2024-02-24 14:41 | Outpatient (CLI) | payer MEDICARE, MEDICAID, SELFPAY ==
[2024-02-24 14:40] LABS: Basophils # 0.1 K/mm3 (0-0.2); Basophils % 1.1 % (0.1-2.0); Eosinophils # 0.2 K/mm3 (0.0-0.4); Eosinophils % 2.9 % (0.1-12.0); Hematocrit 38.6 % (37.0-47.0); Lymphocytes % 28.3 % (10-50); Mean Corpuscular HGB Conc 33.7 g/dL (31.8-35.4); Mean Corpuscular Hemoglobin 30.3 pg (27.0-31.2); Mean Corpuscular Volume 89.9 fl (81-99); Mean Platelet Volume 8.1 fl (7.4-10.4); Monocytes # 0.5 K/mm3 (0.1-1.0); Monocytes % 7.3 % (1.7-9.3); Neutrophils # 4.2 K/mm3 (1.8-7.8); Neutrophils % 60.4 % (37.0-80.0); Platelet Count 290 K/mm3 (142-424); Red Blood Count 4.29 M/mm3 (4.20-5.40); Red Cell Distribution Width 13.7 % (11.5-17.5); White Blood Count 6.9 K/mm3 (4.8-10.8)
[2024-02-24 15:13] LABS: Chloride 101 mmol/L (98-107); Potassium 4.3 mmoL/L (3.5-5.1); Sodium 137 mmol/L (136-145)
[2024-02-24 15:16] LABS: Alanine Aminotransferase 19 U/L (12-78); Albumin/Globulin Ratio 1.7 (1.1-1.8); Alkaline Phosphatase 45 U/L (38-126); Anion Gap 13.3 mEq/L (5-15); Aspartate Amino Transferase 25 U/L (14-36); Bilirubin,Total 0.8 mg/dl (0.2-1.3); Blood Urea Nitrogen 18 mg/dl (7-17); Carbon Dioxide 27 mmol/L (22.0-30.0); Cholesterol 117 mg/dl (140-200); Estimated Glomerular Filt Rate 69 ml/min (>60); GFR (African American) 84 ML/MIN (>60); Globulin 2.4 g/dL (1.3-3.2); Glucose 105 mg/dl (74-100); Total Protein,Serum 6.4 g/dl (6.3-8.2); Triglycerides 155 mg/dl (30-150); VLDL Cholesterol 31 mg/dL (0-40)
[2024-02-24 15:17] LABS: Calcium 9.4 mg/dl (8.4-10.2); Chol/HDL Ratio 3.3 (1-3.5); HDL Cholesterol 35 mg/dl (40-60); Hemoglobin A1C 6.3 % (4.0-6.0)
[2024-02-24 15:29] LABS: Direct LDL Cholesterol 55.79 mg/dL (100-129)
[2024-02-24 17:09] LABS: Creatinine,Urine Random 60 mg/dL (Not Estab.)
[2024-02-24 17:22] LABS: Microalbumin < 6.000 mg/L (0-16.7)
== END 2024-02-24 23:59 | disposition home or self-care (01) ==
LOC: LAB.DROPOF 14:42
PROVIDERS: PCP Internal Medicine; Visit Provider Internal Medicine
DX: I10 Essential (primary) hypertension (principal); E11.59 Type 2 diabetes mellitus with other circulatory complications; E78.5 Hyperlipidemia, unspecified; M15.0 Primary generalized (osteo)arthritis; K21.9 Gastro-esophageal reflux disease without esophagitis; Z95.1 Presence of aortocoronary bypass graft; I25.10 Atherosclerotic heart disease of native coronary artery without angina pectoris
CPT/HCPCS: 80053; 80061; 82043; 82570; 83036; 85025

== ENCOUNTER 2024-10-01 15:35 | Emergency (ER) | payer MEDICARE, MEDICAID, SELFPAY ==
[2024-10-01 15:37] VITALS: BP 137/67; PULSE 90; RESP 18; TEMP 36.8; O2SAT 96; BMI 31.0
--- NOTE | 2024-10-01 15:40 | PC.NURSE ---
DR STORY AT BEDSIDE
--- NOTE | 2024-10-01 15:41 | XR_ITS ---
PROCEDURE INFORMATION: Exam: XR Chest Exam date and time: 10/01/2024 4:23 PM Age: 78 years old Clinical indication: Cough; Additional info: Coarse throughout, rul wheezinng TECHNIQUE: Imaging protocol: Radiologic exam of the chest. Views: 2 views. COMPARISON: CT ANGIO CHEST PE PROTOCOL 11/12/2020 6:34 PM FINDINGS: Lungs: Subtle patchy interstitial infiltrate within the right mid and upper lung zone consistent with a minimal viral type pneumonitis. Pleural spaces: Unremarkable. No pleural effusion. No pneumothorax. Heart/Mediastinum: Unremarkable. No cardiomegaly. Bones/joints: Median sternotomy wires are identified. IMPRESSION: Subtle patchy interstitial infiltrate within the right mid and upper lung zone consistent with a minimal viral type pneumonitis.
[2024-10-01] MEDS: IPRATROPIUM/ALBUTEROL 3 ML NEB 9 ML IH (15:52)
[2024-10-01] MEDS: DEXAMETHASONE 4MG TABLET 10 MG PO (15:52)
--- NOTE | 2024-10-01 15:59 | ED_ITS ---
Discharge Plan Disposition Patient Disposition: Home, Self-Care Prescriptions Prescriptions: New doxycycline hyclate 100 mg capsule 100 mg PO BID 5 Days Qty: 10 0RF No Action acetaminophen-codeine 300-30 mg tablet 1 tab PO Q8H PRN (Reason: pain) Qty: 15 0RF levocetirizine 5 mg tablet 5 mg PO DAILY Qty: 30 2RF (DME) Accu-Chek Guide test strips Strip See Rx Instructions .ROUTE .COMPLEX Qty: 300 3RF Dose Instruction: USE DIRECTED Rx Instructions: USE DIRECTED (DME) lancets [Accu-Chek Softclix Lancets] [facility] [place] See Rx Instructions .ROUTE .COMPLEX Qty: 300 3RF Dose Instruction: USE DIRECTED Rx Instructions: USE DIRECTED metoprolol tartrate 50 mg tablet See Rx Instructions .ROUTE .COMPLEX Qty: 180 1RF Dose Instruction: TAKE 1 TABLET TWICE DAILY Rx Instructions: TAKE 1 TABLET TWICE DAILY rosuvastatin 20 mg tablet See Rx Instructions .ROUTE .COMPLEX Qty: 90 1RF Dose Instruction: TAKE 1 TABLET ONE TIME DAILY Rx Instructions: TAKE 1 TABLET ONE TIME DAILY metformin 500 mg tablet See Rx Instructions .ROUTE .COMPLEX Qty: 180 1RF Dose Instruction: TAKE 1 TABLET TWICE DAILY WITH MEALS FOR BLOOD SUGAR Rx Instructions: TAKE 1 TABLET TWICE DAILY WITH MEALS FOR BLOOD SUGAR esomeprazole magnesium 40 mg capsule,delayed release(DR/EC) See Rx Instructions .ROUTE .COMPLEX Qty: 90 1RF Dose Instruction: TAKE 1 CAPSULE ONE TIME DAILY Rx Instructions: TAKE 1 CAPSULE ONE TIME DAILY isosorbide mononitrate 30 mg tablet extended release 24 hr See Rx Instructions .ROUTE .COMPLEX Qty: 90 1RF Dose Instruction: TAKE 1 TABLET EVERY MORNING (REPLACES ISOSORBIDE DINITRATE) Rx Instructions: TAKE 1 TABLET EVERY MORNING (REPLACES ISOSORBIDE DINITRATE) lisinopril-hydrochlorothiazide 20-12.5 mg tablet See Rx Instructions .ROUTE .COMPLEX Qty: 90 1RF Dose Instruction: TAKE 1 TABLET EVERY DAY Rx Instructions: TAKE 1 TABLET EVERY DAY (DME) blood-glucose meter [Accu-Chek Guide Me Glucose Mtr] [facility] [place] See Rx Instructions .ROUTE .COMPLEX Qty: 1 3RF Dose Instruction: USE DIRECTED Rx Instructions: USE DIRECTED aspirin 81 MG tablet,chewable 81 mg PO DAILY Activity Restrictions/Add. Instructions Additional Instructions/Restrictions: Call your family doctor to establish care for this visit to the emergency department and schedule follow-up within 48 hours to ensure improvement. If you have any worsening of your condition or any other concerning signs or symptoms, return to the emergency department or your primary care doctor for further evaluation. Antibiotic twice daily for 5 days. While taking doxycycline, limit sunlight exposure. It can cause severe sunburns even if you do not typically get sunburn. Be sure to wear hats, long sleeves, sunscreen if you are out in the sun for prolonged periods of time while taking doxycycline. Clinical Impressions Clinical Impression: Right upper lobe pneumonia, Bronchitis Instructions Patient Instructions: Cough Print Language Print Language: Bahraini Discharge ED Provider: Prabhu Corbett General Adult HPI General Chief complaint: Cough Stated complaint: soa Time Seen by Provider: 10/01/24 15:36 Mode of Arrival: Ambulatory Source of Information: Patient Description of Symptoms (Recalled from ER Triage Doc. by RN): PT REPORT PRODUCTIVE COUGH AND CONGESTION THAT STARTED ON THURSDAY. WENT TO PCP YESTERDAY, GIVEN RX FOR TYLENOL WITH CODEINE. DOES NOT FEEL BETTER. DENIES CHEST PAIN History of Present Illness HPI narrative: Please note that above description of symptoms, in this electronic medical record under categorization of recalled from ER triage doctor by RN are reflective of an initial nursing assessment, however, is not reflective of my full history and physical exam that was personally taken and clarified. Consequentially, this preceding description of symptoms, which may include the patient's categorized chief complaint in the EMR, do not reflect my personal clinical impression, and the ultimate description of history of present illness and patient stated complaints should be deferred to this section of the note. Unless stated otherwise or congruent with this section of the note, additional signs, symptoms, or incongruence should be interpreted as inaccurate with my clinical impression. Related Data Home Medications ?Medication ?Instructions ?Recorded ?Confirmed aspirin 81 mg chewable tablet 81 mg PO DAILY Heart dis ease 11/12/20 09/30/24 Previous Rx's ?Medication ?Instructions ?Recorded blood sugar diagnostic (Accu-Chek #300 strips 06/21/24 Guide test strips) lancets (Accu-Chek Softclix #300 ea 06/21/24 Lancets) metoprolol tartrate 50 mg tablet See Rx Instructions . Route 07/01/24 .COMPLEX #180 tabs esomeprazole magnesium 40 mg See Rx Instructions .Rout e 09/20/24 capsule,delayed release .COMPLEX #90 caps isosorbide mononitrate 30 mg See Rx Instructions .Rout e 09/20/24 tablet,extended release 24 hr .COMPLEX #90 tabs lisinopril 20 See Rx Instructions .Route 0 09/20/24 mg-hydrochlorothiazide 12.5 mg .COMPLEX #90 tabs tablet metformin 500 mg tablet See Rx Instructions .Route 0 09/20/24 .COMPLEX #180 tabs rosuvastatin 20 mg tablet See Rx Instructions .Route 0 09/20/24 .COMPLEX #90 tabs blood-glucose meter (Accu-Chek #1 kit 09/23/24 Guide Me Glucose Meter) acetaminophen 300 mg-codeine 30 mg 1 tab PO Q8H PRN pa in #15 tabs 09/30/24 tablet levocetirizine 5 mg tablet 5 mg PO DAILY #30 tabs 09/18 07/12 doxycycline hyclate 100 mg capsule 100 mg PO BID 5 day s #10 caps 10/01/24 Allergies Allergy/AdvReac Type Severity Reaction Status Date / Time No Known Allergies Allergy Verified 09/30/24 15:34 [facility] Disclaimer: The information contained in this section may have been updated after the patient was seen, as this information can be updated by other users. Social History Smoking Status: Never smoker alcohol intake: never current occupational status: retired Travel in the last 8 weeks?: None Have you lived/traveled outside US in past 30 days?: No Contact w/someone who lives/traveled outside US past 30 days?: No Exposure to someone with infectious disease in past 14 days?: No Do you have a fever (greater than 100.4 F or 38 C)?: No Have you tested positive for COVID-19?: No Exposed to someone with COVID-19 in past 14 days?: No Do you have a sore throat?: No Do you have a cough?: No Do you have any weakness?: No Do you have any diarrhea?: No Are you experiencing any unusual bleeding?: No Do you have any muscle aches/pain?: No Do you have any abdominal pain?: No Are you experiencing loss of taste or smell?: No Other Medical History Have you received the Flu Vaccine for this season: Yes Have you received the Pneumonia Vaccine: No ROS Obtained: Yes All systems reviewed & no additional complaints except as documented Physical Exam General General appearance: alert and in no apparent distress Head Head exam: atraumatic and normocephalic Eye Eye exam: Present normal appearance, PERRL and EOMI Neck Neck exam: Present normal inspection, full ROM and trachea midline Respiratory Respiratory exam: Present wheezes (Diffuse, bilateral, coarse, worse in right upper lobe anteriorly) and other (Speaking in full sentences); Absent respiratory distress, stridor, accessory muscle use or prolonged expiratory phase Cardiovascular Cardiovascular exam: Present regular rate, normal rhythm and other (Pulses equal symmetric in upper and lower extremities) Abdominal Exam Abdominal exam: Present soft; Absent distention, tenderness or pulsatile mass Extremities Exam Extremities exam: Absent edema Neurological Exam Neurological exam: Present alert, oriented X3 and CN II-XII intact; Absent motor sensory deficit Skin Skin exam: Present warm and dry; Absent diaphoresis or erythema Medical Decision Making Medical Records Medical records reviewed: Yes I reviewed the patient's medical records. Screening: Per USPSTF and CDC recommendations, given the prevalence of disease in our region, it is our hospital?s policy to screen for HIV and viral Hepatitis for all patients aged 18 and over and those with ongoing risk factors. Herac[place] Inquiry Pt receiving controlled substance: No Heraclio was queried for this patient: No Vital Signs: 10/01/24 15:37 10/01/24 16:01 10/01/24 16:30 Temperature 98.3 F Temperature Source Oral Pulse Rate 84 89 Pulse Rate [Radial] 90 Respiratory Rate 18 20 Blood Pressure 110/77 119/69 Blood Pressure [Right Arm] 137/67 Blood Pressure Mean 88 Blood Pressure Mean [Right Arm] 90 Blood Pressure Source [Right Arm] Automatic Cuff Blood Pressure Position [Right Arm] Sitting 02 Sat by Pulse Oximetry 96 99 99 Oxygen Delivery Method Room Air Room Air Orders (Tests/Meds): ED MEDICATIONS Discontinued Medications Generic Name Dose Route Start Last Admin Trade Name Freq PRN Reason Stop Dose Admin Albuterol/Ipratropium 9 ml 10/01/24 15:41 10/01/24 15:52 Ipratropium/Albuterol 3 Ml Neb IH 10/01/24 15:42 9 ml ONCE ONE Administration Dexamethasone 10 mg 10/01/24 15:41 10/01/24 15:52 Dexamethasone 4mg Tablet PO 10/01/24 15:42 10 mg ONCE ONE Administration ORDERS Category Date Time Status CXR 2 view (NOT portable) [XR chest 2V] Stat Exams 10/01/24 15:41 Taken HIV Combo Stat Lab 10/01/24 15:44 Ordered Hepatitis C Ab Qual. 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 She states has been going on for about 2 days. Denies chest pain, nausea, vomiting, fevers, chills, syncope, sick contacts. She states that she went to family physician yesterday, received pills for the cough which has improved, but she still feels short of breath. Not exertional. Denies PND, orthopnea, lower extremity swelling, or any other concerns. History was obtained via conversation with patient and family. On arrival, patient hemodynamically stable, alert, oriented x4, appropriate, GCS 15, moving all extremities spontaneously, pupils equal and reactive to light. Full physical exam performed and significant for 78-year-old female very pleasant, in no acute distress. Speaking in full sentences, no prolonged expiratory phase. Lungs with bilateral diffuse expiratory wheezes, decreased breath sounds and focally worse wheezing right upper lobe anteriorly. Normal cardiac exam with normal S1-S2 and no murmurs gallops or rubs. No lower extremity edema. Pulses are equal and symmetric in upper and lower extremities. She is grossly neurologically intact. Differential includes reactive airway disease exacerbation, pneumonia, bronchitis, less likely to be PE, pneumothorax, dissection, ACS, VA, among others. Patient placed on continuous cardiac monitoring and continuous pulse ox with initial blood pressure 137/67, heart rate 90 bpm, saturation 96% on room air. Patient was given DuoNebs, Decadron for symptomatic management and correction of underlying abnormalities. Workup independently interpreted and significant for patchy right upper lobe opacities consistent with early pneumonia. Bronchial inflammation. On reevaluation, patient states she is feeling much better. On repeat lung auscultation, all lung benitez appear and sound significantly improved, although there is still end expiratory wheezing with the exception of her right upper lobe anteriorly, still inspiratory and expiratory wheezes coarse as compared to the rest. Given patient presentation, workup, history, this most likely represents right upper lobe pneumonia and exacerbation of reactive airway disease. Patient states that she just started taking antihistamine as well. I feel this is appropriate. Doxycycline to be sent to the pharmacy for 5 days. Precautions were given. Because patient at baseline without signs or symptoms of clinical decompensation, deemed appropriate for discharge. Results were relayed to patient who voiced understanding and were agreeable to outpatient management and follow up. I discussed my clinical impression with patient and answered all questions. At this time, the evidence for any other entities in the differential is insufficient to warrant any further testing or ED observation. This was explained as well. Advisory was given that persistent or worsening symptoms require further evaluation. I confirmed the understanding of this discussion. Roll Tension Tester disclaimer Much of this encounter note is an electronic provisioning analyst spoken language to printed text. Electronic provisioning analyst of the spoken language may permit errors. Although I have reviewed the note, some errors may still exist. Critical Care Critical Care Time Critical Care Time: No
[2024-10-01 16:01] VITALS: BP 110/77; PULSE 84; RESP 20; O2SAT 99
[2024-10-01 16:30] VITALS: BP 119/69; PULSE 89; O2SAT 99
[2024-10-01 16:45] VITALS: PULSE 99; O2SAT 94
[2024-10-01 17:05] VITALS: BP 111/67; PULSE 94; RESP 18; TEMP 36.8; O2SAT 97
== END 2024-10-01 17:07 | disposition home or self-care (01) ==
PROVIDERS: Emergency Provider Emergency Medicine; PCP Internal Medicine
DX: J18.9 Pneumonia, unspecified organism (principal); R06.02 Shortness of breath; J20.9 Acute bronchitis, unspecified
CPT/HCPCS: 71046; 99283; J8540

== ENCOUNTER 2024-10-10 10:37 | Outpatient (CLI) | payer MEDICARE, MEDICAID, SELFPAY ==
[2024-10-10 17:50] LABS: Albumin Level 4.1 g/dl (3.5-5.0)
[2024-10-10 17:51] LABS: Chloride 94 mmol/L (98-107); Sodium 136 mmol/L (136-145)
[2024-10-10 17:53] LABS: Alanine Aminotransferase 18 U/L (12-78); Albumin/Globulin Ratio 1.5 (1.1-1.8); Alkaline Phosphatase 60 U/L (38-126); Aspartate Amino Transferase 24 U/L (14-36); Bilirubin,Total 0.9 mg/dl (0.2-1.3); Blood Urea Nitrogen 27 mg/dl (7-17); Carbon Dioxide 29 mmol/L (22.0-30.0); Estimated Glomerular Filt Rate 69 ml/min (>60); GFR (African American) 84 ML/MIN (>60); Globulin 2.8 g/dL (1.3-3.2); Total Protein,Serum 6.9 g/dl (6.3-8.2)
[2024-10-10 17:54] LABS: Calcium 9.6 mg/dl (8.4-10.2); Chol/HDL Ratio 3.1 (1-3.5); Cholesterol 110 mg/dl (140-200); Glucose 115 mg/dl (74-100); HDL Cholesterol 35 mg/dl (40-60); Triglycerides 151 mg/dl (30-150); VLDL Cholesterol 30 mg/dL (0-40)
[2024-10-10 18:05] LABS: Direct LDL Cholesterol 43.29 mg/dL (100-129)
[2024-10-10 18:27] LABS: Hemoglobin A1C 8.1 % (4.0-6.0)
== END 2024-10-10 23:59 | disposition home or self-care (01) ==
LOC: LAB.DROPOF 10-12 10:37
PROVIDERS: PCP Internal Medicine; Visit Provider Internal Medicine
DX: E11.59 Type 2 diabetes mellitus with other circulatory complications (principal); E78.5 Hyperlipidemia, unspecified; I25.10 Atherosclerotic heart disease of native coronary artery without angina pectoris; I10 Essential (primary) hypertension
CPT/HCPCS: 80053; 80061; 83036

== ENCOUNTER 2024-11-19 10:53 | Emergency (ER) | payer MEDICARE, MEDICAID, SELFPAY ==
[2024-11-19 11:12] VITALS: BP 136/78; PULSE 75; RESP 13; TEMP 36.9; O2SAT 97; BMI 28.9
--- NOTE | 2024-11-19 11:12 | ED_ITS ---
Discharge Plan Disposition Patient Disposition: Home, Self-Care Condition: Fair Prescriptions Prescriptions: New amoxicillin-pot clavulanate 875-125 mg tablet 1 tab PO BID Qty: 14 0RF No Action acetaminophen-codeine 300-30 mg tablet 1 tab PO Q8H PRN (Reason: pain) Qty: 15 0RF levocetirizine 5 mg tablet 5 mg PO DAILY Qty: 30 2RF (DME) Accu-Chek Guide test strips Strip See Rx Instructions .ROUTE .COMPLEX Qty: 300 3RF Dose Instruction: USE DIRECTED Rx Instructions: USE DIRECTED (DME) lancets [Accu-Chek Softclix Lancets] Misc See Rx Instructions .ROUTE .COMPLEX Qty: 300 3RF Dose Instruction: USE DIRECTED Rx Instructions: USE DIRECTED metoprolol tartrate 50 mg tablet See Rx Instructions .ROUTE .COMPLEX Qty: 180 1RF Dose Instruction: TAKE 1 TABLET TWICE DAILY Rx Instructions: TAKE 1 TABLET TWICE DAILY rosuvastatin 20 mg tablet See Rx Instructions .ROUTE .COMPLEX Qty: 90 1RF Dose Instruction: TAKE 1 TABLET ONE TIME DAILY Rx Instructions: TAKE 1 TABLET ONE TIME DAILY esomeprazole magnesium 40 mg capsule,delayed release(DR/EC) See Rx Instructions .ROUTE .COMPLEX Qty: 90 1RF Dose Instruction: TAKE 1 CAPSULE ONE TIME DAILY Rx Instructions: TAKE 1 CAPSULE ONE TIME DAILY isosorbide mononitrate 30 mg tablet extended release 24 hr See Rx Instructions .ROUTE .COMPLEX Qty: 90 1RF Dose Instruction: TAKE 1 TABLET EVERY MORNING (REPLACES ISOSORBIDE DINITRATE) Rx Instructions: TAKE 1 TABLET EVERY MORNING (REPLACES ISOSORBIDE DINITRATE) lisinopril-hydrochlorothiazide 20-12.5 mg tablet See Rx Instructions .ROUTE .COMPLEX Qty: 90 1RF Dose Instruction: TAKE 1 TABLET EVERY DAY Rx Instructions: TAKE 1 TABLET EVERY DAY (DME) blood-glucose meter [Accu-Chek Guide Me Glucose Mtr[place] [facility] [place] Instructions .ROUTE .COMPLEX Qty: 1 3RF Dose Instruction: USE DIRECTED Rx Instructions: USE DIRECTED metformin 500 mg tablet See Rx Instructions .ROUTE .COMPLEX Qty: 360 1RF Dose Instruction: TAKE 1 TABLET TWICE DAILY WITH MEALS FOR BLOOD SUGAR Rx Instructions: Take 2 tablets p.o. twice a day with meals aspirin 81 MG tablet,chewable 81 mg PO DAILY Referrals Follow up/Referrals: Juan Mccollum MD [Primary Care Provider, Medical] - See instructions Activity Restrictions/Add. Instructions Additional Instructions/Restrictions: You were found to have an infection of your tooth. Take the antibiotics as prescribed. You can take Tylenol and ibuprofen to help with pain. Is very important you follow-up with your dentist as soon as possible as you will likely have to have multiple teeth removed. If you develop any new or worsening symptoms, such as shortness of breath, difficulty swallowing, pain with moving your eyes or vision changes, return to the emergency department for evaluation. Clinical Impressions Clinical Impression: Abscess, dental Print Language Print Language: Venezuelan Discharge ED Provider: Josafat Pantoja General Adult HPI General Chief complaint: PAIN Stated complaint: swelling on right side of cheek Time Seen by Provider: 11/19/24 11:04 History of Present Illness HPI narrative: Theodora Kirkpatrick is a 78Y female with a history of type 2 diabetes, hypertension who presents to the emergency department for complaints of swelling to the left side of her face and tooth pain. Patient states that she has had issues with her teeth for over a year. She states over the last 3 days, she has had pain in one of the teeth on the top left side. She states that she is not having pain today but noted some swelling when she woke up this morning to the left side of her face. She denies any vision changes. She denies any pain with extraocular movement. She is concerned that she might have an infected tooth. She states that she is planning to follow with her dentist on Thursday of next week. She is requesting antibiotics at this time. Related Data Home Medications ?Medication ?Instructions ?Recorded ?Confirmed aspirin 81 mg chewable tablet 81 mg PO DAILY Heart dis ease 11/12/20 10/10/24 Previous Rx's ?Medication ?Instructions ?Recorded blood sugar diagnostic (Accu-Chek #300 strips 06/21/24 Guide test strips) lancets (Accu-Chek Softclix #300 ea 06/21/24 Lancets) metoprolol tartrate 50 mg tablet See Rx Instructions . Route 07/01/24 .COMPLEX #180 tabs esomeprazole magnesium 40 mg See Rx Instructions .Rout e 09/20/24 capsule,delayed release .COMPLEX #90 caps isosorbide mononitrate 30 mg See Rx Instructions .Rout e 09/20/24 tablet,extended release 24 hr .COMPLEX #90 tabs lisinopril 20 See Rx Instructions .Route 0 09/20/24 mg-hydrochlorothiazide 12.5 mg .COMPLEX #90 tabs tablet rosuvastatin 20 mg tablet See Rx Instructions .Route 0 09/20/24 .COMPLEX #90 tabs blood-glucose meter (Accu-Chek #1 kit 09/23/24 Guide Me Glucose Meter) acetaminophen 300 mg-codeine 30 mg 1 tab PO Q8H PRN pa in #15 tabs 09/30/24 tablet levocetirizine 5 mg tablet 5 mg PO DAILY #30 tabs 09/18 07/12 metformin 500 mg tablet See Rx Instructions .Route 0 10/11/24 .COMPLEX #360 tabs amoxicillin 875 mg-potassium 1 tab PO BID #14 tabs 06/14 clavulanate 125 mg tablet Allergies Allergy/AdvReac Type Severity Reaction Status Date / Time No Known Allergies Allergy Verified 09/30/24 15:34 [facility] Disclaimer: The information contained in this section may have been updated after the patient was seen, as this information can be updated by other users. Social History Smoking Status: Never smoker alcohol intake: never current occupational status: retired Travel in the last 8 weeks?: None Have you lived/traveled outside US in past 30 days?: No Contact w/someone who lives/traveled outside US past 30 days?: No Exposure to someone with infectious disease in past 14 days?: No Do you have a fever (greater than 100.4 F or 38 C)?: No Have you tested positive for COVID-19?: No Exposed to someone with COVID-19 in past 14 days?: No Do you have a sore throat?: No Do you have a cough?: No Do you have any weakness?: No Do you have any diarrhea?: No Are you experiencing any unusual bleeding?: No Do you have any muscle aches/pain?: No Do you have any abdominal pain?: No Are you experiencing loss of taste or smell?: No Other Medical History Have you received the Flu Vaccine for this season: Yes Have you received the Pneumonia Vaccine: No ROS Obtained: Yes Systems reviewed as appropriate & no additional complaints except as documented Physical Exam General General appearance: alert and in no apparent distress Head Head exam: atraumatic Eye Eye exam: Present normal appearance ENT ENT exam: Present normal external ear exam Expanded ENT Exam Open Mouth Image: 2 1. Severely decayed tooth with swelling along the gumline and buccal mucosa Comment: Poor dentition throughout with multiple dental caries and multiple missing teeth. Uvula midline. No oropharyngeal swelling Neck Neck exam: Present full ROM Chest Chest inspection: Present symmetric chest wall rise Respiratory Respiratory exam: Present normal lung sounds bilaterally; Absent respiratory distress Cardiovascular Cardiovascular exam: Present regular rate and normal rhythm Abdominal Exam Abdominal exam: Present soft; Absent tenderness or guarding Extremities Exam Extremities exam: Present normal inspection Back Exam Back exam: Present normal inspection Neurological Exam Neurological exam: Present alert and oriented X3 Psychiatric Psychiatric exam: Present normal affect Skin Skin exam: Present warm and dry Medical Decision Making Medical Records Screening: Per USPSTF and CDC recommendations, given the prevalence of disease in our region, it is our hospital?s policy to screen for HIV and viral Hepatitis for all patients aged 18 and over and those with ongoing risk factors. [place] Inquiry Pt receiving controlled substance: No Vital Signs: 11/19/24 11:12 11/19/24 11:20 Temperature 98.5 F 98.5 F Temperature Source Oral Pulse Rate 75 Pulse Rate [Left Radial] 75 Respiratory Rate 13 13 Blood Pressure 136/78 Blood Pressure [Right Arm] 136/78 Blood Pressure Mean [Right Arm] 97 02 Sat by Pulse Oximetry 97 Medical Decision Narrative: Theodora Kirkpatrick is a 78Y female with a history of type 2 diabetes, hypertension who presents to the emergency department for complaints of swelling to the left side of her face and tooth pain. Patient states that she has had issues with her teeth for over a year. She states over the last 3 days, she has had pain in one of the teeth on the top left side. She states that she is not having pain today but noted some swelling when she woke up this morning to the left side of her face. She denies any vision changes. She denies any pain with extraocular movement. She is concerned that she might have an infected tooth. She states that she is planning to follow with her dentist on Thursday of next week. She is requesting antibiotics at this time. On arrival, patient is hemodynamically stable, afebrile, breathing In room air maintaining appropriate oxygen saturation. Physical exam, stated above, revealed an overall well appearing female in no distress. She has very poor dentition throughout with multiple dental caries and eroding teeth and missing teeth. More specifically around the area of tooth #10 or 11, there is a significantly decayed tooth with swelling at the gumline and buccal mucosa. She has some mild swelling over her face in this area but overall is nontender. She has no pain with extraocular movements. No evidence of orbital or preseptal cellulitis on exam, thus no CT imaging of the face for lab work is indicated at this time. Patient's symptomatology and exam is most consistent with dental infection/abscess. Will provide her a course of Augmentin and emphasized that she needs to see a dentist early next week to have definitive care, which would likely consist of having teeth removed. Return precautions were given. All questions were answered. She demonstrated understanding and was in agreement with this plan. She was then discharged from the emergency department in stable condition. Critical Care Critical Care Time Critical Care Time: No
[2024-11-19 11:20] VITALS: BP 136/78; PULSE 75; RESP 13; TEMP 36.9; O2SAT 97
== END 2024-11-19 11:21 | disposition home or self-care (01) ==
PROVIDERS: Emergency Provider Student in an Organized Health Care Education/Training Program; PCP Internal Medicine
DX: K04.7 Periapical abscess without sinus (principal)
CPT/HCPCS: 99282